=== PATIENT | male | born 1955 | race Caucasian/White ===

== ENCOUNTER 2020-10-10 13:36 | Emergency (ER) | payer SELFPAY ==
[2020-10-10 15:03] LABS: BILIRUBIN NEGATIVE (NEGATIVE); BLOOD 2+ Ery/uL (NEGATIVE); CLARITY CLEAR (CLEAR); COLOR YELLOW (YELLOW); GLUCOSE (U) NORMAL (NORMAL); LEUKOCYTES TRACE Leu/uL (NEGATIVE); NITRITE NEGATIVE (NEGATIVE); PROTEIN NEGATIVE (NEGATIVE); SPECIFIC GRAVITY 1.025 (1.001-1.030); UROBILINOGEN 0.2 mg/dL (0.2-1.0)
[2020-10-10 15:29] LABS: BACTERIA TRACE; MUCOUS MODERATE
[2020-10-10 16:10] LABS: BASOPHIL 0.7 % (0-2); EOSINOPHIL 2.5 % (0-5); HCT 39.4 % (42.0-52.0); HGB 13.2 g/dl (13.2-18.0); LYMPHOCYTE 35.2 % (15-48); MCH 31.7 pg (25.0-31.0); MCHC 33.5 g/dL (32.0-36.0); MCV 94.7 fL (78.0-100.0); MONOCYTE 7.4 % (0-12); MPV 9.3 fL (6.0-9.5); NEUTROPHIL 53.7 % (41-80); NRBC 0; PLT 219 K/uL (150-400); RBC 4.16 M/uL (4.70-6.00); WBC 10.6 K/uL (4.0-10.5)
[2020-10-10 16:34] LABS: BUN/CREAT RATIO (CALC) 21.9 RATIO; CREATININE 0.73 mg/dL (0.67-1.17); POTASSIUM 4.2 mmol/L (3.5-5.1)
[2020-10-10] MEDS ORDERED: CYCLOBENZAPRINE10 MG PO (17:05)
[2020-10-10] MEDS ORDERED: PREDNISONE 20MG20 MG PO (17:05)
[2020-10-10] MEDS ORDERED: CIPRO500 MG PO (17:05)
== END 2020-10-10 17:18 | disposition home or self-care (01) ==
LOC: FER 13:36
PROVIDERS: Emergency Medicine
DX: M54.16 Radiculopathy, lumbar region (principal); N39.0 Urinary tract infection, site not specified; N20.0 Calculus of kidney; I10 Essential (primary) hypertension; F17.210 Nicotine dependence, cigarettes, uncomplicated; Z86.73 Personal history of transient ischemic attack (TIA), and cerebral infarction without residual deficits
CPT/HCPCS: 36415; 72110; 80048; 81001; 85025; 87088; J1885

== ENCOUNTER → 2022-04-19 | Day surgery (SDC) | payer OTHER ==
[~2022-04-19] VITALS: Ht 175.3 cm; Wt 105.7 kg
[~2022-04-19] MED LIST: CIPRO500 MG PO; CYCLOBENZAPRINE10 MG PO; NORVASC5 MG PO; PREDNISONE 20MG20 MG PO; PRINIVIL10 MG PO; SYMBICORT 80-10.2 GM INH; VENTOLIN HFA IN18 GM INH
[2022-04-19 10:00] LABS: BASOPHIL 0.8 % (0-2); EOSINOPHIL 2.2 % (0-7); HCT 40.8 % (42.0-52.0); MCHC 34.3 g/dL (32.0-36.0); MCV 90.5 fL (78.0-100.0); MONOCYTE 7.4 % (0-12); MPV 9.2 fL (6.0-9.5); NRBC 0; PLT 253 K/uL (150-400); RBC 4.51 M/uL (4.70-6.00); RDW 13.2 % (11.5-14.0); WBC 13.1 K/uL (4.0-10.5)
[2022-04-19 10:02] LABS: LYMPHOCYTE 38.7 % (15-48)
[2022-04-19 10:11] LABS: PROTHROMBIN TIME 12.9 SECONDS (11.9-13.9); PTT 30.3 SECONDS (24.9-34.6)
[2022-04-19 17:58] LABS: BUN/CREAT RATIO (CALC) 19.8 RATIO; CREATININE 0.81 mg/dL (0.67-1.17); POTASSIUM 3.8 mmol/L (3.5-5.1)
== END | disposition home or self-care (01) ==
LOC: FAS 09:14
PROVIDERS: Anesthesiology; Oral & Maxillofacial Surgery
DX: K02.9 Dental caries, unspecified (principal); K04.7 Periapical abscess without sinus; I10 Essential (primary) hypertension; J44.9 Chronic obstructive pulmonary disease, unspecified; I25.10 Atherosclerotic heart disease of native coronary artery without angina pectoris; F17.200 Nicotine dependence, unspecified, uncomplicated; Z86.73 Personal history of transient ischemic attack (TIA), and cerebral infarction without residual deficits; Z79.899 Other long term (current) drug therapy
CPT/HCPCS: D7140; D7210; D7310; 36415; 71045; 80048; 85025; 85610; 85730; 93005; J1100; J2250; J2370; J2405; J2704; J3010; J7120